=== PATIENT | male | born 1990 | race Caucasian/White ===

== ENCOUNTER 2017-02-05 04:52 | Emergency (ER) | payer SELFPAY ==
--- NOTE | 2017-02-05 05:13 | PDOC ---
History of Present Illness - General Stated Complaint: PAIN IN LEFT LEG Time Seen by Provider: 02/05/17 05:11 Past History - Past Medical History Allergies/Adverse Reactions: Allergies Allergy/AdvReac Type Severity Reaction Status Date / Time No Known Allergies Allergy Verified 05/19/15 21:43 Home Medications: Ambulatory Orders Ibuprofen [Motrin] 800 mg PO TID #20 tablet 05/20/15 - Immunization History Immunization Up to Date: Yes - Suicide/Smoking/Psychosocial Hx Smoking History: Never smoked Number of Cigarettes Smoked Daily: 0 Cigars Per Day: 0 Hx Alcohol Use: Yes (weekends) Drug/Substance Use Hx: No Substance Use Type: None
[2017-02-05 05:37] VITALS: BP 148/98; PULSE 98; TEMP 98.6; BMI 26.6
--- NOTE | 2017-02-05 05:40 | PDOC ---
History of Present Illness - General Stated Complaint: PAIN IN LEFT LEG Time Seen by Provider: 02/05/17 05:11 History Source: Patient Exam Limitations: No Limitations - History of Present Illness Initial Comments: 02/05/17 05:32 Patient is a 26M with no significant medical history here today complaining of left leg pain for the past hour. He says that his skin just feels sensitive, and is not tender to palpation. He is able to bear weight without pain. He did not have any recent trauma. He denies erythema, rash, nausea, vomiting, fevers and chills. He states that his girlfriend is a nurse, and that she made him concerned that this was a DVT, so he came in to get checked out. The increased sensitivity is located on the medial part of his left calf. He's never had any blood clot before. Past History - Past Medical History Allergies/Adverse Reactions: Allergies Allergy/AdvReac Type Severity Reaction Status Date / Time No Known Allergies Allergy Verified 02/05/17 05:36 Home Medications: Ambulatory Orders Ibuprofen [Motrin] 800 mg PO TID #20 tablet 05/20/15 - Immunization History Immunization Up to Date: Yes - Suicide/Smoking/Psychosocial Hx Smoking History: Never smoked Number of Cigarettes Smoked Daily: 0 Cigars Per Day: 0 Hx Alcohol Use: Yes (weekends) Drug/Substance Use Hx: No Substance Use Type: None Review of Systems - Review of Systems Comments:: 02/05/17 05:35 GENERAL/CONSTITUTIONAL: No fever or chills. No weakness. HEAD, EYES, EARS, NOSE AND THROAT: No change in vision. No sore throat. CARDIOVASCULAR: No chest pain or shortness of breath RESPIRATORY: No cough, wheezing, or hemoptysis. GASTROINTESTINAL: No nausea, vomiting, diarrhea or constipation. GENITOURINARY: No dysuria, frequency, or change in urination. MUSCULOSKELETAL: Positive for left leg pain. No neck or back pain. SKIN: No rash NEUROLOGIC: No headache, vertigo, loss of consciousness, or change in strength/ sensation. HEMATOLOGIC/LYMPHATIC: No anemia, easy bleeding, or history of blood clots. ALLERGIC/IMMUNOLOGIC: No hives or skin allergy. *Physical Exam - Physical Exam Comments: 02/05/17 05:36 GENERAL: Awake, alert, and fully oriented, in no acute distress HEAD: No signs of trauma, normocephalic, atraumatic EYES: PERRLA, EOMI, sclera anicteric, conjunctiva clear ENT: Auricles normal inspection, hearing grossly normal, nares patent, oropharynx clear without exudates. Moist mucosa LUNGS: No distress, speaks full sentences, clear to auscultation bilaterally HEART: Regular rate and rhythm, normal S1 and S2, no murmurs, rubs or gallops, peripheral pulses normal and equal bilaterally. EXTREMITIES: Normal inspection, Normal range of motion, no edema. No clubbing or cyanosis. NEUROLOGICAL: Cranial nerves II through XII grossly intact. Normal speech, normal gait, no focal sensorimotor deficits SKIN: Warm, Dry, normal turgor, no rashes or lesions noted. L LEG: No rash, no erythema, no edema, nontender to palpation, able to bear weight pain free Vascular Pulses: Femoral (R): 4+, Femoral (L): 4+, Carotid (R): 4+, Carotid (L) : 4+, Dorsalis-Pedis (R): 4+, Doralis-Pedis (L): 4+ Medical Decision Making - Medical Decision Making 02/05/17 05:37 26M with no significant medical history here today complaining of leg pain. Vital signs stable and normal. Able to bear weight, nontender to palpation, no signs of trauma, no rash or erythema. Possible that this is early onset of herpes zoster in L4 distribution, but description of pain does not fit dermatome well. Will discharge with instructions to return if pain worsens or a rash develops. *DC/Admit/Observation/Transfer Diagnosis at time of Disposition: Leg pain Qualifiers: Laterality: left Qualified Code(s): M79.605 - Pain in left leg - Discharge Dispostion Disposition: HOME Condition at time of disposition: Good Admit: No - Patient Instructions Printed Discharge Instructions: DI for Leg Pain
--- NOTE | 2017-02-05 05:50 | PDOC ---
Attending Attestation - Resident Resident Name: LobitoCarroll richardson - HPI HPI: 02/05/17 05:47 Pt has medial aspect left lower leg pain. Some small red pinpoints on the skin. No other color changes. Pt has no calf swelling and no sign of DVT or tenderness of the calf with palpation. - Physicial Exam PE: 02/05/17 05:49 Agree with resident exam - Medical Decision Making 02/05/17 05:49 medial leg sensitivity/pain.
== END 2017-02-05 05:59 | disposition home or self-care (01) ==
LOC: JER 04:52
DX: M79.605 Pain in left leg (principal)
CPT/HCPCS: 99281-25